=== PATIENT | male | born 1980 | race Caucasian/White ===

== ENCOUNTER → 2019-01-16 07:38 | Day surgery (SDC) | payer OTHER ==
[~2019-01-16 07:38] MED LIST: Acetaminophen TAB* 325 MG PO PRN; Buffered Lidocaine 1% SYRIN* 1 ML/SYRINGE INTRADERM ONE; Dexamethasone IV* 4 MG/ML 1 ML (4 MG) ONE; DiMENhydriNATE IV* 50 MG/ML VIAL IV PUSH PRN; DiMENhydriNATE IV* 50 MG/ML VIAL ONE; Famotidine IV* 10 MG/ML 2 ML (20 mg) IV ONE; Famotidine IV* 10 MG/ML 2 ML (20 mg) ONE; Ketorolac INJ* 30 MG/ML 1 ML VIAL ONE; Lactated Ringers 1000 ML Bag* 1,000 ML IV SCH; Lidocaine 1% MPF ** 5 ML VIAL ONE; Lidocaine 2% PF * 5 ML VIAL ONE; Midazolam* 1 MG/ML 5 ML VIAL (5 MG) ONE; Naloxone* 0.4 MG/ML 1 ML VIAL IV PRN; Ondansetron INJ* 2 MG/ML VIAL ONE; Propofol* 10 MG/ML 20 ML BTL ONE; ROPIVACAINE 5 MG/ML 30 ML BTL (0.5%) ONE; Ropivacaine 0.2% * 2 MG/ML VIAL ONE; Succinylcholine* 20 MG/ML 10 ML VIAL ONE; ceFAZolin 2 GM in NS PREMIX(*) 2 GM/100 ML BAG IVPB ONE; fentaNYL* 50 MCG/ML 2 ML VIAL (100 MCG VIAL) ONE; methylPREDNISolone ACETATE 80* 80 MG/ML 1 ML VIAL ONE; oxyCODONE TAB* 5 MG TAB PO PRN
[2019-01-16 12:45] VITALS: BP 99/59
--- NOTE | 2019-01-17 14:34 | OP ---
DATE OF OPERATION: 01/16/19 [facility] DATE OF : 80. SURGEON: Salima Allen MD. CARPENTER REPAIR: DESMOND Orona. An healthcare administrative assistant was needed for the entirety of the case to help with positioning, retraction, and utilized throughout all portions of the case due to the size of the patient. ANESTHESIOLOGIST: Dr. Leija. ANESTHESIA: General with interscalene block. PRE-OP DIAGNOSIS: Left shoulder osteoarthritis with possible partial tear of the rotator cuff and SLAP tear of the bicipital tendonitis. POST-OP DIAGNOSES: Osteoarthritis with bicipital tendonitis and SLAP tear, but an intact rotator cuff with impingement. OPERATIVE PROCEDURE: Left shoulder arthroscopy with: 1. Extensive glenohumeral debridement including chondroplasty. 2. Subacromial decompression with acromioplasty. 3. Subpectoral biceps tenodesis. 4. Subacromial injection with 80 mg of Depo-Medrol. COMPLICATIONS: None. ESTIMATED BLOOD LOSS: Minimal. IMPLANTS USED: One Q-FIX 2.8 mm. INDICATIONS: Rosa Conroy is a very pleasant 38-year-old male who presents with moderate osteoarthritis of his shoulder. He has failed conservative management. He has persistent pain because he is too young to proceed with a replacement and it is not quite bad enough for a replacement. We discussed options. I discussed referring him out for possible resurfacing versus trying arthroscopy to see if this helps some of his symptoms. He would like to proceed with an arthroscopy. The risks and benefits were discussed in length, which include, but not limited to bleeding; infection; damage to nerves, vessels , surrounding structures; wound nonhealing; persistent pain; need for surgery; scarring; stiffness; incomplete relief of symptoms; risks of anesthesia. DESCRIPTION OF PROCEDURE: The patient was greeted in the preoperative area by the attending surgeon, correct extremity was marked, consent was confirmed. The patient underwent interscalene nerve block after which he was brought back to the operative suite, placed in a supine position on the operating table and underwent general anesthesia and endotracheal intubation, after which the left shoulder was draped unsterile with 10 pounds of traction. The left shoulder was then prepped and draped in the usual sterile fashion beginning with chlorhexidine soap, scrub, and alcohol wipe, and a final prep with ChloraPrep. After appropriate surgical pause indicating site, side, procedure, administration of antibiotics, the standard posterolateral portal was then made using a 11 blade. Scope was then introduced into the joint. The joint was examined. There were evidence of grade 3 changes with unstable flaps. The anterior, posterior, superior labrum and inferior labrum had unstable fraying. The anterior portal was made in an outside-in fashion. The shaver was used to debride back the superior labrum and tenotomize the biceps for later tenodesis. The subscap was intact. Small chondroplasty was done on the humeral head, as well as the glenoid. The inferior recess was intact without any obvious loose bodies. Once the intraarticular portion was completed and debridement was completed, attention was directed to the subacromial space. The scope was positioned in the subacromial space. The lateral portal was made in an outside-in fashion. The shaver was used to debride back the abundant synovitis that was present. The undersurface of the acromion was skeletonized using electrocautery device and it revealed anterolateral spur. This was then debrided back using a 4-0 oval bart. Once all this debris was removed, the cuff was then gently probed and was found to be intact. It is intact in the intraarticular portion as well. Decision was made to treat this with subacromial injection. Therefore, an 18-gauge needle was then placed under arthroscopic visualization and attention was directed to the biceps. The bed was airplaned to the left side. The anterior aspect of the shoulder was prepped again using ChloraPrep. The 15 blade was used to make an incision in line with the biceps tendon. Soft tissues were carefully dissected to expose the pec tendon which was elevated. The biceps was then palpated and the biceps was brought through the wound and was found to have synovitis. The groove was created in the usual fashion with electrocautery device, red ball rasp, and osteotome. Q-FIX was then deployed unicortically with excellent purchase. The sutures were passed through the tendon in a Pedro Luis-Daniel type configuration. Excess stump was excised and the biceps was tied down. Once this was secured, all wounds were irrigated. T he portal was closed with 3-0 nylon and the skin was closed with 3-0 Monocryl. Sterile dressings were applied. A Cryo/Cuff and an UltraSling were applied. He was awoken from anesthesia and transferred to PACU in stable condition. POSTOPERATIVE PLAN: He will be nonweightbearing and sling for 3 weeks. He will be discharged on pain medication. DVT prophylaxis considered but deferred due to no previous personal or family history. I will see the patient back in 10 to 14 days. [id number]/[facility] #: [id number] MTDD
== END | disposition home or self-care (01) ==
LOC: OR 07:38
PROVIDERS: ATTEND Orthopaedic Surgery
DX: M19.012 Primary osteoarthritis, left shoulder (principal); M75.42 Impingement syndrome of left shoulder; M75.22 Bicipital tendinitis, left shoulder; M24.812 Other specific joint derangements of left shoulder, not elsewhere classified; G89.18 Other acute postprocedural pain; M19.90 Unspecified osteoarthritis, unspecified site; E66.9 Obesity, unspecified; Z87.442 Personal history of urinary calculi
CPT/HCPCS: C1776; J0330; J0690; J1040; J1100; J1240; J1885; J2250; J2405; J2704; J2795; J3010